=== PATIENT | male | born 2000 | race Two or more races ===

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

== ENCOUNTER 2023-01-23 10:17 | Outpatient (CLI) | payer OTHER | END 2023-01-23 10:23 | disposition home or self-care (01) | LOC: RAD 10:17 | PROVIDERS: ATTEND Orthopaedic Surgery | DX: M25.562 Pain in left knee (principal) ==